=== PATIENT | male | born 1980 | race Caucasian/White ===

== ENCOUNTER → 2019-01-08 11:55 | Outpatient (CLI) | payer BC, SELFPAY ==
[2019-01-08 12:35] LABS: Basophils % 0.6 % (0.1-2.0); Eosinophils # 0.1 K/mm3 (0.0-0.4); Eosinophils % 1.7 % (0.1-12.0); Hematocrit 48.3 % (42.0-52.0); Hemoglobin 16.6 g/dL (14.1-18.0); Lymphocytes # 2.9 K/mm3 (0.7-4.5); Lymphocytes % 41.7 % (10-50); Mean Corpuscular HGB Conc 34.4 g/dL (31.8-35.4); Mean Corpuscular Volume 87.2 fl (80-94); Mean Platelet Volume 7.2 fl (7.4-10.4); Monocytes # 0.5 K/mm3 (0.1-1.0); Monocytes % 6.6 % (1.7-9.3); Neutrophils # 3.4 K/mm3 (1.8-7.8); Neutrophils % 49.4 % (37.0-80.0); Platelet Count 227 K/mm3 (142-424); Red Blood Count 5.54 M/mm3 (4.60-6.20); Red Cell Distribution Width 13.5 % (11.5-17.5); White Blood Count 6.9 K/mm3 (4.8-10.8)
[2019-01-08 13:31] LABS: Alanine Aminotransferase 42 U/L (12-78); Albumin Level 4.3 gm/dL (3.4-5.0); Albumin/Globulin Ratio 1.3 (1.1-1.8); Alkaline Phosphatase 55 U/L (46-116); Anion Gap 14.4 mEq/L (5-15); Aspartate Amino Transferase 22 U/L (15-37); Bilirubin,Total 0.9 mg/dL (0.2-1.0); Blood Urea Nitrogen 15 mg/dL (7-18); Calcium 8.9 mg/dL (8.5-10.1); Carbon Dioxide 28 mmol/L (21.0-32.0); Chloride 103 mmol/L (98-107); Creatinine,Serum 0.98 mg/dL (0.70-1.30); Estimated Glomerular Filt Rate 85 ml/min (>60); GFR (African American) 103 ML/MIN (>60); Globulin 3.2 gm/dl (1.3-3.2); Glucose 92 mg/dL (74-106); Lipase 90 u/L (73-393); Potassium 4.4 mmoL/L (3.5-5.1); Sodium 141 mmol/L (136-145); Total Protein,Serum 7.5 gm/dL (6.4-8.2)
[2019-01-09 18:11] LABS: Tissue Transglutaminase IgA Ab <2 U/mL (0-3); Tissue Transglutaminase IgG Ab <2 U/mL (0-5)
== END ==
PROVIDERS: Visit Provider Internal Medicine Adolescent Medicine
DX: R10.84 Generalized abdominal pain (principal)
CPT/HCPCS: 36415; 80053; 83516; 83690; 85025

== ENCOUNTER → 2019-01-12 09:00 | Outpatient (CLI) | payer BC, SELFPAY ==
--- NOTE | 2019-01-12 12:00 | CT_ITS ---
CT abdomen pelvis wo/w con CLINICAL INDICATION: ITS.REASON: ABD PAIN, BLOOD IN STOOL ORDERING PHYSICIAN: Jem Zavaleta MD PATIENT AGE: 38 years COMPARISON: None TECHNIQUE: Axial images obtained without and with contrast with sagittal and coronal reformats. All CT scans at the facility use one or more dose reduction, viz: automated exposure control, ma/kV adjustment per patient size (including targeted exams where dose is matched to indication, i.e. head), or iterative reconstruction technique. PROCEDURE: Oral Contrast: Redicat IV Contrast: 75 mL's Optiray 350. FINDINGS: The lung bases are clear. The liver, spleen, adrenal glands, gallbladder, pancreas, and kidneys have an unremarkable appearance. No renal or ureteral calculi or hydronephrosis evident. Unremarkable appendix. No intestinal obstruction or free air. No evidence of diverticulitis or appendicitis. No pelvic mass abnormal fluid collection or focal inflammatory change evident within the pelvis. No acute bony findings. The abdominal aorta has an unremarkable appearance. No evidence of proximal celiac or SMA stenosis. No adenopathy. IMPRESSION: Negative CT abdomen pelvis without and with contrast.
== END ==
PROVIDERS: PCP Internal Medicine Adolescent Medicine; Referring Provider Internal Medicine Adolescent Medicine; Visit Provider Internal Medicine Adolescent Medicine
DX: R10.84 Generalized abdominal pain (principal); K92.1 Melena
CPT/HCPCS: 74178; Q9967

== ENCOUNTER → 2019-05-18 15:15 | Outpatient (CLI) | payer OTHER, SELFPAY ==
--- NOTE | 2019-05-18 15:24 | XR_ITS ---
PROCEDURE: XR FINGER RT MIN 2V CLINICAL INDICATION: INJURY OF FINGER OF RT. HAND Pain COMPARISON: No exams were available for comparison TECHNIQUE: FINDINGS: No fracture or dislocation. Mild soft tissue swelling at the PIP IMPRESSION: No acute fracture Dictated by: Uche Pena MD 05/18/2019 16:20 Signed by: <Electronically signed by Uche Pena MD in [place]> 05/18/2019 16:20
== END ==
PROVIDERS: PCP Internal Medicine Adolescent Medicine; Visit Provider Internal Medicine Adolescent Medicine
DX: S69.91XA Unspecified injury of right wrist, hand and finger(s), initial encounter (principal)
CPT/HCPCS: 73140